=== PATIENT | female | born 1990 | race Caucasian/White ===

== ENCOUNTER 2017-12-27 10:10 | Emergency (ER) | END 2017-12-27 14:18 | disposition home or self-care (01) ==

== ENCOUNTER 2018-07-10 22:17 | Emergency (ER) | payer MEDICAID ==
[~2018-07-10] VITALS: Ht 157.5 cm; Wt 49.6 kg
[~2018-07-10 22:17] MED LIST: BACTDS PO; CEPH-443 PO; CLIN300C10 PO; HYDR-4011 PO; IBUP-1542 PO; NAPR-985 PO; PHEN-538 PO
[2018-07-10 22:18] VITALS: Ht 157.5 cm; Wt 49.6 kg
--- NOTE | 2018-07-11 00:08 | ERD ---
ER Documentation Chief Complaint Chief Complaint ABD PAIN WITH BACK PAIN, DYSURIA [id number]; ON ATBs-amox for UTI? per pt HPI 28-year-old female, presents to the emergency department, complaining of persistent dysuria with back pain for 1 week, the patient has been taking amoxicillin without improvement of the symptoms. She denies nausea or vomiting, no fever or chills, no vaginal discharge. ROS All systems reviewed and are negative except as per history of present illness. Medications Home Meds Active Scripts Ibuprofen* (Motrin*) 400 Mg Tab, 400 MG PO Q6H PRN for PAIN AND OR ELEVATED TEMP, #20 TAB Prov:EZEKIEL THOMPSON MD 07/11/18 Acetaminophen* (Tylenol*) 325 Mg Tablet, 2 TAB PO Q6 PRN for PAIN AND OR ELEVATED TEMP, #20 TAB Prov:EZEKIEL THOMPSON MD 07/11/18 Ciprofloxacin Hcl* (Ciprofloxacin Hcl*) 250 Mg Tablet, 250 MG PO BID, #14 TAB Prov:EZEKIEL THOMPSON MD 07/11/18 Ibuprofen* (Motrin*) 600 Mg Tab, 600 MG PO Q6, #15 TAB Prov:ROSEMARIE MCDANIEL MD 12/27/17 Phenazopyridine Hcl* (Pyridium*) 200 Mg Tab, 200 MG PO TID PRN for URINARY PAIN, #6 TAB Prov:ROSEMARIE MCDANIEL MD 12/27/17 Cephalexin* (Keflex*) 500 Mg Capsule, 500 MG PO QID for 5 Days, CAP Prov:ROSEMARIE MCDANIEL MD 12/27/17 Hydrocodone/Acetaminophen ([place] 5-325 Tablet) 1 Each Tablet, 1 TAB PO Q6H PRN for PAIN, #15 TAB Prov:NOEL UNDERWOOD 12/21/15 Clindamycin Hcl* (Clindamycin Hcl*) 300 Mg Capsule, 300 MG PO TID for 7 Days, CAP Prov:NOEL UNDERWOOD 12/21/15 Naproxen* (Naprosyn*) 500 Mg Tablet, 500 MG PO BID PRN for PAIN AND/OR INFLAMMATION, #30 TAB Prov:MERCEDEZ PEREYRA PA-C 12/19/15 Sulfamethoxazole-Trimethoprim* (Bactrim* DS) 800-160 Mg Tab, 1 TAB PO BID for 7 Days, TAB Prov:MERCEDEZ PEREYRA PA-C 12/19/15 Allergies Allergies: Coded Allergies: No Known Allergy (Unverified , 12/27/17) PMhx/Soc History of Surgery: Yes (C section) Anesthesia Reaction: No Hx Neurological Disorder: No Hx Respiratory Disorders: No Hx Cardiac Disorders: No Hx Psychiatric Problems: No Hx Miscellaneous Medical Probl: No Hx Alcohol Use: No Hx Substance Use: No Hx Tobacco Use: No FmHx Family History: No diabetes, No coronary disease Physical Exam Vitals Vital Signs Date Temp Pulse Resp B/P (MAP) Pulse Ox O2 O2 Flow FiO2 Time Delivery Rate 07/11/18 98.3 95 17 108/63 98 Room Air 02:28 (78) 07/10/18 99.6 111 18 117/75 99 22:18 (89) Physical Exam Const: No acute distress Head: Atraumatic Eyes: Normal Conjunctiva ENT: Normal External Ears, Nose and Mouth. Neck: Full range of motion. No meningismus. Resp: Clear to auscultation bilaterally Cardio: Regular rate and rhythm, no murmurs Abd: Soft, non tender, non distended. Normal bowel sounds, no CVA tenderness. Skin: No petechiae or rashes Back: No midline or flank tenderness Ext: No cyanosis, or edema Neur: Awake and alert Psych: Normal Mood and Affect Result Diagram: 07/11/18 0028 07/11/18 0028 Results 24 hrs Laboratory Tests Test 07/11/18 00:25 07/11/18 00:28 POC Beta HCG, Qualitative NEGATIVE White Blood Count 15.3 10^3/ul Red Blood Count 4.89 10^6/ul Hemoglobin 13.7 g/dl Hematocrit 40.4 % Mean Corpuscular Volume 82.6 fl Mean Corpuscular Hemoglobin 28.0 pg Mean Corpuscular Hemoglobin Concent 33.9 g/dl Red Cell Distribution Width 12.6 % Platelet Count 280 10^3/UL Mean Platelet Volume 9.3 fl Immature Granulocytes % 0.400 % Neutrophils % 87.1 % Lymphocytes % 5.8 % Monocytes % 6.0 % Eosinophils % 0.3 % Basophils % 0.4 % Nucleated Red Blood Cells % 0.0 /100WBC Immature Granulocytes # 0.060 10^3/ul Neutrophils # 13.3 10^3/ul Lymphocytes # 0.9 10^3/ul Monocytes # 0.9 10^3/ul Eosinophils # 0.0 10^3/ul Basophils # 0.1 10^3/ul Nucleated Red Blood Cells # 0.0 10^3/ul Urine Color STRAW Urine Clarity SLIGHTLY CLOUDY Urine pH 6.0 Urine Specific [place] 1.003 Urine Ketones TRACE mg/dL Urine Nitrite NEGATIVE mg/dL Urine Bilirubin NEGATIVE mg/dL Urine Urobilinogen NEGATIVE mg/dL Urine Leukocyte Esterase 3+ Keely/ul Urine Microscopic RBC 5 /HPF Urine Microscopic WBC 112 /HPF Urine Bacteria MODERATE /HPF Urine Yeast (Budding) FEW /HPF Urine Hemoglobin 3+ mg/dL Urine Glucose NEGATIVE mg/dL Urine Total Protein NEGATIVE mg/dl Sodium Level 140 mmol/L Potassium Level 4.0 mmol/L Chloride Level 103 mmol/L Carbon Dioxide Level 23 mmol/L Anion Gap 14 Blood Urea Nitrogen 8 mg/dl Creatinine 0.59 mg/dl Est Glomerular Filtrat Rate mL/min > 60 mL/min Glucose Level 111 mg/dl Calcium Level 10.3 mg/dl Current Medications Medications Dose Sig/Aysha Start Time Status Last (Trade) Ordered Route PRN Stop Time Admin Dose Reason Admin Sodium 500 ml @ Q1H STAT 07/11/18 DC 07/11/18 Chloride 500 mls/hr IV 00:17 00:38 07/11/18 01:16 Ketorolac 15 mg ONCE STAT 07/11/18 DC 07/11/18 Tromethamine IV 00:17 00:42 (Toradol) 07/11/18 00:38 Ceftriaxone 50 ml @ ONCE ONCE 07/11/18 DC 07/11/18 Sodium 100 mls/hr IVPB 01:30 01:12 07/11/18 01:59 Patient: THERESA GUTIERREZ : 1990 Age: 28 Sex: F MR #: [id number] DOS: 07/11/18 0017 Ordering MD: EZEKIEL THOMPSON MD Location: [facility] Room/Bed: PROCEDURE: Pelvic ultrasound color-flow Doppler of the adnexa. CLINICAL INDICATION: pelvic pain TECHNIQUE: Multiple sagittal, oblique and transverse real time images were obtained of the lower abdomen and pelvis using a transabdominal as well a transvaginal approach. Color-flow Doppler of the adnexa was performed. COMPARISON: None. FINDINGS: The uterus is normal limits in size measuring 8.16 x 3.29 x 4.12 cm. Myometrial echoes are homogeneous without focal lesions. Endometrium homogeneous without focal lesion normal thickness maximal AP diameter 0.1 cm. The ovaries are normal in size the right measuring 3.64 x 2.1 x 2.52 cm and the left measuring 3.29 x 1.4 x 2.54 cm. No ovarian masses. Flow to both ovaries without ultrasonic evidence of ovarian torsion. No adnexal masses or free fluid. IMPRESSION: 1. Unremarkable uterus. 2. Unremarkable ovaries without ultrasonic evidence of ovarian torsion. 3. No adnexal masses or free fluid. Procedures/MDM Differential diagnosis include but not limited to: UTI, colitis, gastroenteritis, kidney stones, irritable bowel syndrome, inflammatory bowel syndrome, malabsorption syndrome, cholelithiasis, food intolerance, medication side effect, pancreatitis, diverticulitis, bowel obstruction. Low suspicion for acute abdomen Physical examination and clinical presentation consistent most likely with urinary tract infection, with likely early pyelonephritis, but no evidence of urosepsis. During the ED course the patient remained stable, no new complaints. Results and clinical impression discussed with patient who agrees with management. The patient is stable to be treated outpatient and will be discharged home, some side effects of prescribed medications (headache, rash, nausea, vomiting, diarrhea, drowsiness, habituation, bleeding, hypertension, interactions with other medications) were reviewed. The patient was instructed to follow up with the primary care provider in the next 48h. If symptoms persist, worsen or new symptoms develop, then patient should return to the ED immediately. Instructions explained and given directly by me to the patient with acknowledgment and demonstrated understanding. Disclaimer: Inadvertent spelling and grammatical errors are likely due to EHR/dictation software use and do not reflect on the overall quality of patient care. Also, please note that the electronic time recorded on this note does not necessarily reflect the actual time of the patient encounter. Departure Diagnosis: Primary Impression: UTI (urinary tract infection) Condition: Stable Additional Instructions: Muchas leticia por [facility] para yao servicio. Esperamos que en yao visita a la kathie de emergencia yao problema medico haya sido solucionado y que se sienta mucho mejor. Para estar seguros que yao mejoria sigue en proceso, le pedimos el favor de hacer fatou damaso de seguimiento medico con yao doctor primario en los proximos 2-4 gonzalez. Lleve con usted estos documentos y las medicinas recetadas. Si bryan sintomas empeoran, NO SE ESPERE, por favor regrese a kathie de emergencia INMEDIATAMENTE. En fabiola que usted no tenga un mdico de atencin primaria: Llame al mdico o clnica comunitaria de referencia que aparece abajo alex las horas de consultorio para hacer fatou damaso para que le vean. CLINICAS: [facility] [id number] [facility] [id number] [facility] [phone] [facility] [phone] [place] [phone] [facility] [phone] MD Jul 11, 2018 00:08
[2018-07-11] MEDS ORDERED: SOD CHLORIDE 0.9% 500 ML IV STA (00:17)
[2018-07-11] MEDS ORDERED: KETOROLAC 15 MG INJ IV STA (00:17)
[2018-07-11] MEDS ORDERED: CEFTRIAXONE 1 GM/50 ML (PMX) 50 ML IVPB ONE (01:30)
[2018-07-11] MEDS ORDERED: CIPR-193 PO (02:16)
[2018-07-11] MEDS ORDERED: IBUP-1561 PO (02:18)
[2018-07-11] MEDS ORDERED: ACET325T33 PO (02:18)
[2018-07-11 02:28] VITALS: BP 108/63; PULSE 95; RESP 17
== END 2018-07-11 02:28 | disposition home or self-care (01) ==
LOC: FTE 22:17
DX: N39.0 Urinary tract infection, site not specified (principal); R10.2 Pelvic and perineal pain
CPT/HCPCS: 36415; 76856; 80048; 81001; 81025; 85025; 87086; 96361; 96374; 96375; J0696; J1885; J7040; Z7502